=== PATIENT | female | born 1980 | race African-American/Black ===

== ENCOUNTER 2024-02-14 13:50 | Emergency (ER) | payer OTHER, MEDICAID ==
[~2024-02-14] VITALS: Ht 160 cm; Wt 70.0 kg
[~2024-02-14 13:50] MED LIST: ACET-2708 MT; METO-293 MT
[2024-02-14 13:52] VITALS: O2SAT 99
[2024-02-14 16:30] LABS: CHLORIDE 98 mEq/L (98-107); SODIUM 138 mEq/L (136-145)
[2024-02-14 16:31] LABS: CALCIUM 9.5 mg/dL (8.7-10.4); CARBON DIOXIDE 25 mEq/L (21-32)
[2024-02-14 16:35] LABS: INR 1.1; PROTHROMBIN TIME 12.1 sec (9.6-11.0)
[2024-02-14 16:36] LABS: CREATININE 0.8 mg/dL (0.6-1.0); GLUCOSE 101 mg/dL (70-105); UREA NITROGEN BLOOD 6 mg/dL (9-23)
[2024-02-14 16:50] LABS: HEMATOCRIT. 27.9 % (36.0-48.0); HEMOGLOBIN. 8.9 g/dL (12.0-16.0); MEAN CORPUSCULAR HEMOGLOBIN 23.6 pg (28.0-32.0); MEAN CORPUSCULAR HGB CONC 31.8 g/dL (31.0-37.0); MEAN CORPUSCULAR VOLUME 74.2 fL (81.0-99.0); MEAN PLATELET VOLUME 8.3 fl (7.4-10.4); RED BLOOD CELL COUNT 3.76 mill/uL (4.2-5.4); RED CELL DISTRIBUTION WIDTH 26.4 % (11.6-14.6); WHITE BLOOD COUNT 2.2 x1000/uL (4.5-11.0)
[2024-02-14 17:04] LABS: DIFFERENTIAL COMMENT 1; PLATELET 42 x1000/uL (130-400)
[2024-02-14 18:50] LABS: ANISOCYTOSIS 3+; HYPOCHROMASIA 1+; MICROCYTOSIS 1+; PLATELET ESTIMATE DECREASED
[2024-02-14 18:51] LABS: GIANT PLATELETS 1+
[2024-02-14] MEDS: LEVETIRACETAM 500MG PREMIX 100 ML IV ONE (19:44)
[2024-02-14] MEDS: ONDANSETRON HCL 4MG/2ML INJ IV ONE (19:44)
[2024-02-14 21:57] VITALS: BP 153/135; PULSE 104; RESP 20; TEMP 37.16964; O2SAT 99
[2024-02-14 22:03] LABS: CLARITY URINE CLEAR (CLEAR); COLOR URINE YELLOW (YELLOW); GLUCOSE URINE NEGATIVE (NEGATIVE); KETONES URINE 1+ (NEGATIVE); LEUKOCYTE ESTERASE URINE NEGATIVE (NEGATIVE); NITRITE URINE NEGATIVE (NEGATIVE); OCCULT BLOOD URINE TRACE (NEGATIVE); PROTEIN URINE 3+ (NEGATIVE); SPECIFIC GRAVITY URINE 1.021 (1.005-1.030)
[2024-02-14 22:13] LABS: *AMPHETAMINES SCREEN URINE NEGATIVE (NEGATIVE); *BARBITURATES SCREEN URINE NEGATIVE (NEGATIVE); *BENZODIAZEPINES SCREEN URINE NEGATIVE (NEGATIVE); *COCAINE SCREEN URINE NEGATIVE (NEGATIVE); CANNABINOID URINE SCREEN NEGATIVE (NEGATIVE); METHADONE URINE SCREEN NEGATIVE (NEGATIVE); OPIATES URINE SCREEN NEGATIVE (NEGATIVE); PHENCYCLIDINE URINE SCREEN NEGATIVE (NEGATIVE)
[2024-02-14 22:14] LABS: ECSTASY MDMA SCREEN URINE NEGATIVE (NEGATIVE)
[2024-02-14 22:17] LABS: WBC URINE 0-2 /hpf (0-2)
[2024-02-14 22:18] LABS: BACTERIA URINE TRACE; SQUAMOUS EPITHELIAL CELL URINE 2+ /lpf (RARE/1+)
== END 2024-02-14 22:15 | disposition left against medical advice (07) ==
LOC: ER 13:58 → EDBEDREQTM 21:01 → EDBEDREQ 21:01 → CANBEDREQ 21:51 → ER 22:15
DX: G40.909 Epilepsy, unspecified, not intractable, without status epilepticus (principal); D69.6 Thrombocytopenia, unspecified; F17.200 Nicotine dependence, unspecified, uncomplicated; I10 Essential (primary) hypertension; Z88.0 Allergy status to penicillin
CPT/HCPCS: 80305; 80048; 81003; 85025; 85610; 36415; 96365; 96375; 99285; J1953; J2405; Z7610 ×2; A4606

== ENCOUNTER 2024-03-25 21:16 | Inpatient (IN) | payer MEDICAID, OTHER ==
[~2024-03-25] VITALS: Ht 154.9 cm; Wt 70.3 kg
[2024-03-25] MEDS ORDERED: FOLIC ACID 1 MG, THIAMINE HCL 100 MG, MVI, ADULT NO.1 10 ML in DEXTROSE 5% WATER 1,000 ML IV ONE (22:30)
[2024-03-25 22:42] LABS: BASOPHILS % 0.8 % (0.0-2.0); EOSINOPHILS % 0.4 % (0.0-5.0); HEMATOCRIT. 29.4 % (36.0-48.0); HEMOGLOBIN. 8.8 g/dL (12.0-16.0); LYMPHOCYTES % 33.4 % (20.0-50.0); MEAN CORPUSCULAR HEMOGLOBIN 24.5 pg (28.0-32.0); MEAN CORPUSCULAR HGB CONC 30.1 g/dL (31.0-37.0); MEAN CORPUSCULAR VOLUME 81.2 fL (81.0-99.0); MEAN PLATELET VOLUME 8.2 fl (7.4-10.4); MONOCYTES % 9.4 % (2.0-8.0); RED BLOOD CELL COUNT 3.62 mill/uL (4.2-5.4); WHITE BLOOD COUNT 5.4 x1000/uL (4.5-11.0)
[2024-03-25 22:44] LABS: CHLORIDE 98 mEq/L (98-107); POTASSIUM 3.3 mEq/L (3.5-5.1); SODIUM 140 mEq/L (136-145)
[2024-03-25 22:45] LABS: CALCIUM 9.2 mg/dL (8.7-10.4); CARBON DIOXIDE 17 mEq/L (21-32)
[2024-03-25] MEDS ORDERED: FOLIC ACID 1 MG, THIAMINE HCL 100 MG, MVI, ADULT NO.1 10 ML in DEXT 5%/0.9% NACL 1,000 ML IV NR (22:45)
[2024-03-25 22:46] LABS: ADD RBC MORPHOLOGY YES; DIFFERENTIAL COMMENT 1; PLATELET 41 x1000/uL (130-400)
[2024-03-25 22:50] LABS: GLUCOSE 202 mg/dL (70-105); UREA NITROGEN BLOOD 10 mg/dL (9-23)
[2024-03-25 22:52] LABS: ETHANOL BLOOD < 10 mg/dL (<10); HCG SCREEN NEGATIVE
[2024-03-25] MEDS: SODIUM CHLORIDE 0.9% 500 ML IV ONE (22:52)
[2024-03-25 23:05] LABS: ANISOCYTOSIS 2+; PLATELET ESTIMATE MARKEDLY DECREASED
[2024-03-25] MEDS: FOLIC ACID 1 MG, THIAMINE HCL 100 MG, MVI, ADULT NO.1 10 ML in DEXT 5%/0.45% NACL 1000M... IV NR (23:05)
[2024-03-26] MEDS: LORAZEPAM 2MG/ML INJ IV NR (00:12)
[2024-03-26] MEDS ORDERED: HYDRALAZINE 20MG/ML VIAL IV PRN (01:00)
[2024-03-26] MEDS ORDERED: ZOLPIDEM TARTRATE 5MG TABLET PO PRN (01:00)
[2024-03-26] MEDS ORDERED: ONDANSETRON HCL 4MG/2ML INJ IV PRN (01:00)
[2024-03-26] MEDS ORDERED: MAGNESIUM/ALUMINUM HYDROXIDE/SIMETHICONE 30ML UDC PO PRN (01:00)
[2024-03-26] MEDS ORDERED: LORAZEPAM 2MG/ML INJ IV PRN (01:00)
[2024-03-26] MEDS: SODIUM CHLORIDE 0.9% 1,000 ML IV SCH (02:18)
[2024-03-26] MEDS: CHLORDIAZEPOXIDE 25MG CAPSULE PO SCH (06:00)
[2024-03-26] MEDS: ACETAMINOPHEN 325MG TABLET PO PRN (07:18)
[2024-03-26] MEDS: ENOXAPARIN 40MG/0.4ML SYR SUBCUT SCH (09:00)
[2024-03-26] MEDS: CLONIDINE 0.1MG TABLET PO PRN (09:35)
[2024-03-26] MEDS: PANTOPRAZOLE SODIUM 40 MG/VIAL IV SCH (09:35)
[2024-03-26 15:00] VITALS: BP 141/97; PULSE 100; RESP 18; TEMP 36.2; TEMP 36.3; O2SAT 100
[2024-03-26] MEDS ORDERED: NALOXONE HCL 0.4MG/ML VIAL IV PRN (20:15)
[2024-03-26] MEDS: POTASSIUM CHLORIDE 20MEQ TABLET SR PO NR (21:17)
[2024-03-26] MEDS: MVI, ADULT NO.1 10 ML, FOLIC ACID 1 MG, THIAMINE HCL 100 MG in SODIUM CHLORIDE 0.9% 1,0... IV SCH (23:00)
[2024-03-26] MEDS ORDERED: MVI, ADULT NO.1 10 ML, FOLIC ACID 1 MG, THIAMINE HCL 100 MG in SODIUM CHLORIDE 0.9% 1,0... IV SCH (23:00)
[2024-03-27 04:00] VITALS: BP 145/92; PULSE 68; RESP 18; TEMP 36.8; O2SAT 100
[2024-03-27 06:20] LABS: CHLORIDE 99 mEq/L (98-107); POTASSIUM 3.1 mEq/L (3.5-5.1); SODIUM 137 mEq/L (136-145)
[2024-03-27 06:21] LABS: CALCIUM 10.2 mg/dL (8.7-10.4); CARBON DIOXIDE 28 mEq/L (21-32)
[2024-03-27 06:26] LABS: CREATININE 0.8 mg/dL (0.6-1.0)
[2024-03-27 06:27] LABS: GLUCOSE 86 mg/dL (70-105); UREA NITROGEN BLOOD 8 mg/dL (9-23)
[2024-03-27 07:14] LABS: BASOPHILS % 0.5 % (0.0-2.0); HEMATOCRIT. 28.9 % (36.0-48.0); LYMPHOCYTES % 37.6 % (20.0-50.0); MEAN CORPUSCULAR HEMOGLOBIN 24.4 pg (28.0-32.0); MEAN CORPUSCULAR HGB CONC 31.1 g/dL (31.0-37.0); MEAN CORPUSCULAR VOLUME 78.5 fL (81.0-99.0); MONOCYTES % 10.5 % (2.0-8.0); NEUTROPHILS % 49.4 % (40.0-76.0); RED BLOOD CELL COUNT 3.68 mill/uL (4.2-5.4); WHITE BLOOD COUNT 2.8 x1000/uL (4.5-11.0)
[2024-03-27 08:00] VITALS: BP 144/87; PULSE 66; RESP 18; TEMP 36.7; O2SAT 100
[2024-03-27 08:39] LABS: DIFFERENTIAL COMMENT 1; PLATELET 36 x1000/uL (130-400)
[2024-03-27] MEDS: LEVETIRACETAM 500MG TABLET PO SCH (10:05)
[2024-03-27] MEDS: HYDROCODONE/ACETAMINOPHEN 5/325MG TABLET PO PRN (10:06)
[2024-03-27 12:00] VITALS: BP 135/76; PULSE 76; RESP 18; TEMP 36.7; O2SAT 100
[2024-03-27] MEDS: POTASSIUM CHLORIDE 20MEQ TABLET SR PO NR (12:52)
[2024-03-27 15:16] VITALS: BP 135/76; PULSE 88; TEMP 98.1; O2SAT 100
[2024-03-27] MEDS ORDERED: KEPP500 PO (15:51)
[2024-03-27] MEDS ORDERED: THIA100T72 MT (15:51)
[2024-03-27] MEDS ORDERED: POTA-205 MT (15:51)
== END 2024-03-27 16:56 | disposition home or self-care (01) | DRG 53 ==
LOC: ER 21:16 → EDBEDREQ 22:40 → 7WST 03-26 00:33 → EDBEDREQTM 03-26 01:36 → EDBEDREQ 03-26 01:36 → EDBEDREQDT 03-26 01:36
PROVIDERS: ADMIT Internal Medicine; ATTEND Internal Medicine
DX: G40.89 Other seizures (principal); F10.239 Alcohol dependence with withdrawal, unspecified; Y90.9 Presence of alcohol in blood, level not specified; R00.0 Tachycardia, unspecified; Z88.0 Allergy status to penicillin
CPT/HCPCS: 36415; 80048; 80320; 84703; 85025; 93005; 93970; 99285; A4606; J1650; J2470; J3411; J3490; J7030; J7040; J7042; J7070; G0480

== ENCOUNTER 2024-08-10 21:07 | Inpatient (IN) | payer MEDICAID, OTHER ==
[~2024-08-10] VITALS: Ht 167.6 cm; Wt 74.4 kg
[~2024-08-10 21:07] MED LIST changes: +KEPP500 PO; +POTA-205 MT; +THIA100T72 MT
[2024-08-10 22:35] LABS: BASOPHILS % 1.2 % (0.0-2.0); EOSINOPHILS % 1.1 % (0.0-5.0); HEMATOCRIT. 34.9 % (36.0-48.0); HEMOGLOBIN. 11.3 g/dL (12.0-16.0); LYMPHOCYTES % 29.5 % (20.0-50.0); MEAN PLATELET VOLUME 7.2 fl (7.4-10.4); MONOCYTES % 6.2 % (2.0-8.0); NEUTROPHILS % 62.0 % (40.0-76.0); PLATELET 271 x1000/uL (130-400); RED BLOOD CELL COUNT 3.36 mill/uL (4.2-5.4); RED CELL DISTRIBUTION WIDTH 20.5 % (11.6-14.6)
[2024-08-10 22:53] LABS: HCG SCREEN NEGATIVE
[2024-08-10 22:59] LABS: CREATININE 0.8 mg/dL (0.6-1.0); UREA NITROGEN BLOOD 10 mg/dL (9-23)
[2024-08-10 23:32] LABS: ETHANOL BLOOD 281 mg/dL (<10)
[2024-08-10 23:36] LABS: LACTIC ACID 4.4 mmol/L (0.4-2.0)
[2024-08-11] VITALS (9 sets, daily range): BP systolic 105–120; BP diastolic 58–82; PULSE 76–96; RESP 14–16; TEMP 36.7–36.9; O2SAT 98–100
[2024-08-11] MEDS: MAGNESIUM 2 G PREMIX 50 ML IV ONE (01:47)
[2024-08-11] MEDS: FOLIC ACID 1 MG, THIAMINE HCL 100 MG, MVI, ADULT NO.1 10 ML in DEXTROSE 5% WATER 1,000 ML IV ONE (02:09)
[2024-08-11] MEDS ORDERED: DOCUSATE SODIUM 100MG CAPSULE PO PRN (02:15)
[2024-08-11] MEDS ORDERED: GUAIFENESIN 200MG/10ML SUGAR FREE UDC PO PRN (02:15)
[2024-08-11] MEDS ORDERED: IPRATROPIUM/ALBUTEROL 0.5-3(2.5)MG/3ML NEB NEB PRN (02:15)
[2024-08-11] MEDS ORDERED: MAGNESIUM/ALUMINUM HYDROXIDE/SIMETHICONE 30ML UDC PO PRN (02:15)
[2024-08-11] MEDS ORDERED: ACETAMINOPHEN 325MG TABLET PO PRN (02:15)
[2024-08-11] MEDS ORDERED: ONDANSETRON HCL 4MG/2ML INJ IV PRN (02:15)
[2024-08-11] MEDS ORDERED: CLONIDINE 0.1MG TABLET PO PRN (02:15)
[2024-08-11] MEDS ORDERED: LORAZEPAM 2MG/ML UD SYRINGE IV PRN (02:30)
[2024-08-11 04:04] LABS: *AMPHETAMINES SCREEN URINE NEGATIVE (NEGATIVE); *BARBITURATES SCREEN URINE NEGATIVE (NEGATIVE); *BENZODIAZEPINES SCREEN URINE NEGATIVE (NEGATIVE); *COCAINE SCREEN URINE NEGATIVE (NEGATIVE); METHADONE URINE SCREEN NEGATIVE (NEGATIVE)
[2024-08-11 04:05] LABS: CANNABINOID URINE SCREEN NEGATIVE (NEGATIVE); ECSTASY MDMA SCREEN URINE NEGATIVE (NEGATIVE); OPIATES URINE SCREEN NEGATIVE (NEGATIVE); PHENCYCLIDINE URINE SCREEN NEGATIVE (NEGATIVE)
[2024-08-11 05:36] LABS: BASOPHILS % 0.8 % (0.0-2.0); EOSINOPHILS % 1.4 % (0.0-5.0); HEMATOCRIT. 31.4 % (36.0-48.0); HEMOGLOBIN. 10.3 g/dL (12.0-16.0); LYMPHOCYTES % 27.3 % (20.0-50.0); MEAN PLATELET VOLUME 6.8 fl (7.4-10.4); MONOCYTES % 8.7 % (2.0-8.0); NEUTROPHILS % 61.8 % (40.0-76.0); PLATELET 206 x1000/uL (130-400); RED BLOOD CELL COUNT 3.00 mill/uL (4.2-5.4); RED CELL DISTRIBUTION WIDTH 20.4 % (11.6-14.6)
[2024-08-11 05:59] LABS: TRIGLYCERIDE 97 mg/dL (0-150)
[2024-08-11 06:00] LABS: LDL CHOLESTEROL 92 mg/dL (5-100)
[2024-08-11] MEDS: PANTOPRAZOLE 40MG DR TABLET PO SCH (06:00)
[2024-08-11] MEDS: CHLORDIAZEPOXIDE 25MG CAPSULE PO SCH (06:00)
[2024-08-11 06:03] LABS: T4 FREE 0.85 ng/dL (0.89-1.76)
[2024-08-11 06:43] LABS: LACTIC ACID 4.1 mmol/L (0.4-2.0)
[2024-08-11 06:51] LABS: FOLIC ACID (FOLATE) SERUM > 20.00 ng/mL (>5.38); VITAMIN B12 SERUM 423 pg/mL (211-911)
[2024-08-11 08:27] LABS: ASPARTATE AMINOTRANSFERASE 119 IU/L (<34); BILIRUBIN DIRECT 0.1 mg/dL (<=3.0); BILIRUBIN TOTAL 0.4 mg/dL (0.1-1.0); PROTEIN TOTAL 7.0 g/dL (6.0-8.3)
[2024-08-11] MEDS: LAMOTRIGINE 150MG TABLET PO SCH (08:41)
[2024-08-11] MEDS: LEVETIRACETAM 500MG TABLET PO SCH (08:41)
[2024-08-11] MEDS: FERROUS SULFATE 325MG TABLET PO SCH (08:41)
[2024-08-11] MEDS: AMLODIPINE 2.5MG TABLET PO SCH (08:42)
[2024-08-11] MEDS: ACETAMINOPHEN 325MG TABLET PO PRN (08:50)
[2024-08-11] MEDS ORDERED: POTA-205 MT (16:28)
[2024-08-12] MEDS ORDERED: FOLIC ACID 1MG TABLET PO SCH (09:00)
[2024-08-12] MEDS ORDERED: THIAMINE HCL 100MG TABLET PO SCH (09:00)
== END 2024-08-11 19:30 | disposition home or self-care (01) | DRG 421 ==
LOC: ER 21:07 → EDBEDREQ 08-11 00:15 → 3WST 08-11 01:33 → EDBEDREQ 08-11 01:36 → ENRESERV 08-11 01:53
PROVIDERS: ADMIT Hospitalist; ATTEND Hospitalist
DX: E53.8 Deficiency of other specified B group vitamins (principal); E87.20 Acidosis, unspecified; F10.129 Alcohol abuse with intoxication, unspecified; E86.0 Dehydration; D53.9 Nutritional anemia, unspecified; I10 Essential (primary) hypertension; Z79.899 Other long term (current) drug therapy; Z87.891 Personal history of nicotine dependence; Z88.0 Allergy status to penicillin; Z98.84 Bariatric surgery status
CPT/HCPCS: 36415; 71045; 80048; 80061; 80076; 80305; 80307; 80320; 80329; 82550; 82607; 82728; 82746; 83540; 83550; 83605; 83735; 84439; 84443; 84703; 85025; 93005; 97166; 99285; A4606; J3411; J3475; J3490; J7070; G0480

== ENCOUNTER 2024-10-10 10:35 | Emergency (ER) | payer MEDICAID, OTHER ==
[~2024-10-10] VITALS: Ht 167.6 cm; Wt 73.0 kg
[~2024-10-10 10:35] MED LIST changes: -THIA100T72 MT
[2024-10-10 10:37] VITALS: O2SAT 100
[2024-10-10] MEDS: METHYLPREDNISOLONE SOD SUCC 125MG/2ML (ACT-O-VIAL) IV ONE (10:52)
[2024-10-10] MEDS: DIPHENHYDRAMINE 50MG/ML VIAL IV ONE (10:52)
[2024-10-10] MEDS ORDERED: DIPH25CA83 PO (12:30)
[2024-10-10] MEDS ORDERED: P50 PO (12:30)
[2024-10-10 12:57] VITALS: BP 105/55; PULSE 90; RESP 18; TEMP 36.7; O2SAT 100
== END 2024-10-10 13:10 | disposition home or self-care (01) ==
LOC: ER 10:52
DX: T78.2XXA Anaphylactic shock, unspecified, initial encounter (principal); I10 Essential (primary) hypertension; Z79.52 Long term (current) use of systemic steroids; Z79.899 Other long term (current) drug therapy; Z88.0 Allergy status to penicillin; Z98.84 Bariatric surgery status; Y92.89 Other specified places as the place of occurrence of the external cause
CPT/HCPCS: 99291; 96374; 96375; J2919; J1200